=== PATIENT | male | born 1955 | race Two or more races ===

== ENCOUNTER 2025-06-08 15:06 | Inpatient (IN) | payer OTHER, MEDICAID ==
[~2025-06-08] VITALS: Ht 185.4 cm; Wt 86.4 kg
--- NOTE | 2025-06-08 15:24 | ED.PDOC ---
History of Present Illness HPI Comments 70-year-old male, brought in by ambulance, with past medical history of CABG, HTN, and DM presents to the emergency department for chief complaint of s/p near syncopal episodes. EMS reports, patient is coming from home where family called due to patient having x5 near syncopal episodes each lasting approximately 10 seconds. EMS relays, upon arrival to seen patient with found to be hypotensive with a systolic blood pressure in the 90s. In route to the emergency department, patient was given a 200 mL bolus improving his systolic blood pressure to 118 systolic. At this time patient is A&Ox4 and has no other complaints. Time Seen by MD: 15:15 Reviewed Notes: Nurses Notes, Endocrinology Specialist Notes, Medications, Allergies Allergies: Coded Allergies: NO KNOWN ALLERGIES (Unverified , 06/08/25) Information Source: Patient, Emergency Med Personnel Mode of Arrival: EMS Severity: Moderate Timing: Minutes Duration: Since onset Prehospital treatment: None Past Medical History PAST MEDICAL HISTORY: DM, HTN Surgical History: CABG Family History Family History: Unknown Social History Smoker: Non-Smoker Alcohol: Denies ETOH Use Drugs: Denies Drug Use Lives In: Home Constitutional: denies: chills, diaphoresis, fatigue, fever, malaise, sweats, weakness, others EENTM: denies: blurred vision, double vision, ear bleeding, ear discharge, ear drainage, ear pain, ear ringing, eye pain, eye redness, hearing loss, mouth pain, mouth swelling, nasal discharge, nose bleeding, nose congestion, nose pain, photophobia, tearing, throat pain, throat swelling, voice changes, others Respiratory: denies: cough, hemoptysis, orthopnea, SOB at rest, shortness of breath, SOB with excertion, stridor, wheezing, others Cardiovascular: denies: chest pain, dizzy spells, diaphoresis, Dyspnea on exertion, edema, irregular heart beat, left arm pain, lightheadedness, palpitations, PND, syncope, others Gastrointestinal: denies: abdomen distended, abdominal pain, blood streaked bowels, constipated, diarrhea, dysphagia, difficulty swallowing, hematemesis, melena, nausea, poor appetite, poor fluid intake, rectal bleeding, rectal pain, vomiting, others Genitourinary: denies: burning, dysuria, flank pain, frequency, hematuria, incontinence, penile discharge, penile sore, pain, testicle pain, testicle swelling, urgency, others Neurological: reports: others (NEAR SYNCOPE); denies: dizziness, fainting, headache, left sided numbness, left sided weakness, numbness, paresthesia, pre- existing deficit, right sided numbness, right sided weakness, seizure, speech problems, tingling, tremors, weakness Musculoskeletal: denies: back pain, gout, joint pain, joint swelling, muscle pain, muscle stiffness, neck pain, others Integumetry: denies: bruises, change in color, change in hair/nails, dryness, laceration, lesions, lumps, rash, wounds, others Allergic/Immunocompromised: denies: Difficulty Healing, Frequent Infections, Hives, Itching, others Hematologic/Lymphatic: denies: anemia, blood clots, easy bleeding, easy bruising, swollen glands, others Endocrine: denies: excessive hunger, excessive sweating, excessive thirst, excessive urination, flushing, intolerance to cold, intolerance to heat, unexplained weight gain, unexplained weight loss, others Psychiatric: denies: anxiety, bipolar disorder, depression, hopeless, panic disorder, schizophrenia, sleepless, suicidal, others All Other Systems: Reviewed and Negative Physical Exam General Appearance: Moderate Distress HEENT: Normal ENT Inspection, Pharynx Normal, TMs Normal Neck: Full Range of Motion, Non-Tender, Normal, Normal Inspection Respiratory: Chest Non-Tender, Lungs Clear, No Accessory Muscle Use, No Respiratory Distress, Normal Breath Sounds Cardiovascular: No Edema, No JVD, No Murmur, No Gallop, Normal Peripheral Pulses, Regular Rate/Rhythm Breast Exam: Deferred Gastrointestinal: No Organomegaly, Non Tender, No Pulsatile Mass, Normal Bowel Sounds, Soft Genitalia: Deferred Pelvic: Deferred Rectal: Deferred Extremities: No calf tenderness, Normal capillary refill, Normal inspection, Normal range of motion, Non-tender, No pedal edema Musculoskeletal : Apperance: Normal Neurologic: Alert, emergency communications dispatcher II-XII nml as Tested, No Motor Deficits, Normal Affect, Normal Mood, No Sensory Deficits Cerebellar Function: NOT DONE Reflexes: NOT DONE Skin: Dry, Normal Color, Warm Peripheral Pulses: 3+ Radial (R), 3+ Radial (L) Lymphatic: No Adenopathy Was a procedure done? Was a procedure done?: No Differential Dx Considerations may include: HYPOTENSION, ANEMIA, DEHYDRATION, HYPOGLYCEMIA X-Ray, Labs, Meds, VS Vital Signs Date Time Temp Pulse Resp B/P (MAP) Pulse Ox O2 Delivery O2 Flow Rate FiO2 06/08/25 15:25 97.5 63 18 118/57 95 97.5 06/08/25 15:17 60 Lab Test 06/08/25 15:38 Range/Units White Blood Count 12.1 H 4.4-10.8 10^3/uL Red Blood Count 5.76 4.5-5.90 10^6/uL Hemoglobin 17.1 13.5-17.5 g/dL Hematocrit 49.4 41.0-53.0 % Mean Corpuscular Volume 85.8 80.0-100.0 fL Mean Corpuscular Hemoglobin 29.7 28.0-32.0 pg Mean Corpuscular Hemoglobin Concent 34.7 32.0-36.0 g/dL Red Cell Distribution Width 15.7 H 11.8-14.3 % Platelet Count 241 140-450 10^3/uL Mean Platelet Volume 8.3 6.9-10.8 fL Neutrophils (%) (Auto) 47.7 37.0-80.0 % Lymphocytes (%) (Auto) 43.8 10.0-50.0 % Monocytes (%) (Auto) 6.6 0.0-12.0 % Eosinophils (%) (Auto) 1.3 0.0-7.0 % Basophils (%) (Auto) 0.6 0.0-2.0 % Neutrophils # (Auto) 5.8 1.6-8.6 10 ^3/uL Lymphocytes # (Auto) 5.3 0.4-5.4 10 ^3/uL Monocytes # (Auto) 0.8 0-1.3 10 ^3/uL Eosinophils # (Auto) 0.2 0-0.8 10 ^3/uL Basophils # (Auto) 0.1 0-0.2 10 ^3/uL Nucleated Red Blood Cells 0.1 % Sodium Level Pending Potassium Level Pending Chloride Level Pending Carbon Dioxide Level Pending Anion Gap Pending Blood Urea Nitrogen Pending Creatinine Pending Glomerular Filtration Rate Calc Pending BUN/Creatinine Ratio Pending Serum Glucose Pending Calcium Level Pending Troponin I High Sensitivity Pending Patient alert. Possible syncope. Vitals stable. Answering questions. WBC slightly elevated. Possible dehydration. Establish intravenous access. Was given fluids. Neurological exam within normal limits. Explained to the patient that he will be admitted for further studies. Echocardiogram. Continue more drink. Time of 1ST Reevaluation: 15:45 Reevaluation 1ST: Unchanged Patient Education/Counseling: Diagnosis, Treatment Family Education/Counseling: No Family Present SEPSIS Sepsis Screen Physician Orders Troponin-I Hs (06/08/25 15:15) Complete Blood Count (06/08/25 15:15) Urinalysis (06/08/25 15:15) Basic Metabolic Panel (06/08/25 15:15) Sodium Chloride 0.9% (06/08/25 15:15) Electrocardigram (06/08/25 15:32) Vital Signs Date Time Temp Pulse Resp B/P (MAP) Pulse Ox O2 Delivery O2 Flow Rate FiO2 06/08/25 15:25 97.5 63 18 118/57 95 97.5 06/08/25 15:17 60 Laboratory Tests Test 06/08/25 15:38 White Blood Count 12.1 10^3/uL (4.4-10.8) H Departure 1 Departure Time of Disposition: 15:49 Impression: Primary Impression: Hypotension Qualified Codes: I95.9 - Hypotension, unspecified Additional Impression: Syncope Qualified Codes: R55 - Syncope and collapse Disposition: 09 ADMITTED INPATIENT Admit to: Med Surg Condition: Guarded Critical Care Note Critical Care Time?: Yes (90 min-critical care time only) Stability Stability form required: No Heart Score Heart Score: Heart Score Response (Comments) Value History Slightly Suspicious 0 EKG Normal 0 Age >65 2 Risk Factors >3 or Hx ASHD 2 Troponin Normal limit 0 Total 4 I personally scribed for ANI RESTREPO MD ([email or web address]) on 06/08/25 at 15:24. Electronically submitted by Geraldine Grey [email or web address]). ANI RESTREPO MD Jun 08, 2025 15:24
[2025-06-08 15:44] LABS: Hematocrit 49.4 % (41.0-53.0); Hemoglobin 17.1 g/dL (13.5-17.5); Mean Corpuscular Hemoglobin 29.7 pg (28.0-32.0); Mean Corpuscular Volume 85.8 fL (80.0-100.0); Nucleated Red Blood Cells % 0.1 %
[2025-06-08 15:51] LABS: Chloride 105 mmol/L (98-107); Potassium 4.5 mmol/L (3.5-5.1); Sodium 142 mmol/L (136-145)
[2025-06-08 15:52] LABS: Anion Gap 7 (5-15); Calcium 9.2 mg/dL (8.7-10.4); Carbon Dioxide 30 mmol/L (20-31)
[2025-06-08 15:57] LABS: BUN/Creatinine Ratio 11.6 (10.0-20.0); Blood Urea Nitrogen 18 mg/dL (9-23); Glucose 177 mg/dL (74-106)
[2025-06-08] MEDS: SODIUM CHLORIDE 0.9% 1,000 ML IV ONE (16:40)
[2025-06-08 19:27] VITALS: PULSE 69; RESP 20; O2SAT 94
[2025-06-08 19:49] LABS: Urine Protein, UAD Negative (Negative)
[2025-06-09] MEDS ORDERED: DEXTROSE (50%) 50ML SYRG IV PRN ×2 (04:45→18:15)
--- NOTE | 2025-06-09 04:56 | DVHHPRES ---
History of Present Illness Resident Creating Document: CARLIE NEW RESIDENT History of Present Illness 70-year-old male with past medical history of diabetes mellitus on insulin, hypertension, triple-vessel bypass with stent placement, bladder cancer on radiation therapy, prostate cancer on chemotherapy presents to the ER after e xperiencing a 'passing out' episode. The patient was not confused after the episode. He denies any chest pain, shortness of breath, fever, abdominal pain or any other complaints today. Patient's systolic blood pressure was in the 90s on admission in the ER today. Blood pressure and symptoms improved after receiving IV fluid. The patient expresses his frustration, regarding not being able to receive insulin from the pharmacy after prescription by his PCP. Patient wants to make sure he receives insulin while going home. He has been using insulin from his mother and friend, because he was not able to get insulin from the pharmacy. Past medical history: Diabetes mellitus, bladder cancer, prostate cancer, hypertension Past surgical history: Triple-vessel bypass surgery Home medications: Insulin, low-dose aspirin, Lipitor?, patient could not recall the antihypertensive medicine Alcohol: Occasionally, last drink was 1 bottle of beer, before the syncope Smoking: Never Drugs: Active marijuana use Allergies: None PCP:? Code status: Full code Review of Systems Neurological: Other Other Syncope Allergies: Coded Allergies: NO KNOWN ALLERGIES (Unverified , 06/08/25) Medications Current Medications Medications Dose Ordered Sig/Dolores Route Start Time Stop Time Status Last Admin Dose Admin Diagnostic Test (Pha) 1 strip Q6HR 06/09/25 06:00 UNV Insulin Human Regular Q6HR SC 06/09/25 06:00 UNV Dextrose 50 ml UD PRN IV 06/09/25 04:45 UNV Exam Vital Signs Vital Signs Date Time Temp Pulse Resp B/P (MAP) Pulse Ox O2 Delivery O2 Flow Rate FiO2 06/09/25 02:47 98.0 98 15 106/52 (70) 92 98.0 06/08/25 19:27 Room Air* 0 21 Exam Pt is lying on bed General Appearance: Alert, Oriented X3, Cooperative, Mild distress HEENT: Atraumatic, Mucous membranes moist/pink Respiratory: Clear to auscultation, Normal air movement, No added sounds Cardiovascular: Regular rate, Normal S1, Normal S2, No murmurs Abdominal/ : Active bowel sounds, Soft, no distention, no tenderness Extremities: No edema, Normal pulses, No tenderness/swelling Skin: No Significant rash, except past surgical scars Neuro: Normal speech, sensorimotor deficits none Psych/Mental Status: Mental status NL, Mood NL Nurse was there as leasing sales consultant during examination Labs/Xrays Labs Test 06/08/25 19:16 06/08/25 15:38 Range/Units Urine Color Yellow Yellow Urine Clarity Clear Clear Urine pH 6.0 5.0-9.0 Urine Specific [place] 1.029 1.001-1.035 Urine Protein Negative Negative Urine Ketones Negative Negative Urine Blood Negative Negative /uL Urine Nitrite Negative Negative Urine Bilirubin Negative Negative Urine Urobilinogen Normal Negative mg/dL Urine Leukocyte Esterase Negative Negative /uL Urine RBC 1 0 - 3 /hpf Urine Microscopic WBC 1 0-3 /HPF Urine Squamous Epithelial Cells None seen <5 /hpf Urine Bacteria None seen None Seen /hpf Urine Glucose 4+ H Normal mg/dL White Blood Count 12.1 H 4.4-10.8 10^3/uL Red Blood Count 5.76 4.5-5.90 10^6/uL Hemoglobin 17.1 13.5-17.5 g/dL Hematocrit 49.4 41.0-53.0 % Mean Corpuscular Volume 85.8 80.0-100.0 fL Mean Corpuscular Hemoglobin 29.7 28.0-32.0 pg Mean Corpuscular Hemoglobin Concent 34.7 32.0-36.0 g/dL Red Cell Distribution Width 15.7 H 11.8-14.3 % Platelet Count 241 140-450 10^3/uL Mean Platelet Volume 8.3 6.9-10.8 fL Neutrophils (%) (Auto) 47.7 37.0-80.0 % Lymphocytes (%) (Auto) 43.8 10.0-50.0 % Monocytes (%) (Auto) 6.6 0.0-12.0 % Eosinophils (%) (Auto) 1.3 0.0-7.0 % Basophils (%) (Auto) 0.6 0.0-2.0 % Neutrophils # (Auto) 5.8 1.6-8.6 10 ^3/uL Lymphocytes # (Auto) 5.3 0.4-5.4 10 ^3/uL Monocytes # (Auto) 0.8 0-1.3 10 ^3/uL Eosinophils # (Auto) 0.2 0-0.8 10 ^3/uL Basophils # (Auto) 0.1 0-0.2 10 ^3/uL Nucleated Red Blood Cells 0.1 % Sodium Level 142 136-145 mmol/L Potassium Level 4.5 3.5-5.1 mmol/L Chloride Level 105 98-107 mmol/L Carbon Dioxide Level 30 20-31 mmol/L Anion Gap 7 5-15 Blood Urea Nitrogen 18 9-23 mg/dL Creatinine 1.55 H 0.700-1.30 mg/dL Glomerular Filtration Rate Calc 48 >90 mL/min BUN/Creatinine Ratio 11.6 10.0-20.0 Serum Glucose 177 H 74-106 mg/dL Calcium Level 9.2 8.7-10.4 mg/dL Troponin I High Sensitivity 26 </=54 ng/L SEPSIS Sepsis Screen Date sepsis recognized/suspect: Jun 08, 2025 Time Sepsis recognized/suspect: 1951 Recent Procedure: No On Antibiotic Therapy: No Respiratory Rate >20: No Heart Rate >90: No Temp<36 C (96.8 F) or >38.3 C: No SBP <90 or MAP <65 mmHG: No New Acute Mental Status Change: No Is the patient on CPAP, BIPAP,: No Physician Orders Admit (06/09/25 04:24) Allergies (06/09/25 04:24) Complete Blood Count (06/10/25 04:00) Comprehensive Metabolic Panel (06/10/25 04:00) Stat Ekg For Chest Pain (06/09/25 04:24) Notify Md Of Changes From Base (06/09/25 04:24) Paralegal Legal Secretary For 24 Hours (06/09/25 04:24) Emergency Dysrhythmia Protocol (06/09/25 04:24) Rhythm Strips Once Every Shift (06/09/25 04:24) * Cardiology Consult (06/09/25 04:30) Chest Two Views Routine (06/09/25 04:39) Glucose Blood (Accu-Chek Comfort Curve T (06/09/25 06:00) Insulin R (Human) (Insulin R) (06/09/25 06:00) Dextrose 50% Syringe (06/09/25 04:45) Sequential Compression Device (06/09/25 04:45) Vital Signs Date Time Temp Pulse Resp B/P (MAP) Pulse Ox O2 Delivery O2 Flow Rate FiO2 06/09/25 02:47 98.0 98 15 106/52 (70) 92 98.0 06/09/25 00:00 68 17 132/60 (84) 94 06/08/25 21:56 71 18 130/70 (90) 94 Assessment/Plan Assessment/Plan Syncope due to cardiac/neurology cause Status post triple-vessel bypass surgery EKG: Sinus rhythm, no ischemic changes Cardiology consult done Orthostatic vitals ordered, patient received IV fluid Continue low-dose aspirin Hypertension: Continue home medicines Uncontrolled diabetes Insulin sliding scale KENDAL likely due to VMN Creatinine 1.55 IV fluid Consult nephrology if necessary Alcohol and marijuana abuse disorder Counseling regarding cessation was done for more than 21 minutes GI prophylaxis: Not indicated DVT prophylaxis: SCDs Diet: Cardiac Goals of care discussed with the patient for more than 27 minutes: Full code status Case discussed with Dr. Brenner , patient and RN Plan discussed with: Patient, Other (RN) My Orders Orders - CARLIE NEW RESIDENT Procedure Category Date Status Time Admit ADMIT 06/09/25 Transmitted 04:24 Allergies [facility] 06/09/25 In Process 04:24 Complete Blood Count LAB 06/10/25 Verified 04:00 Comprehensive LAB 06/10/25 Verified Metabolic Panel 04:00 Stat Ekg For Chest [facility] 06/09/25 In Process Pain 04:24 Notify Of Changes [facility] 06/09/25 In Process From Base 04:24 Paralegal Legal Secretary For [facility] 06/09/25 In Process 24 Hours 04:24 Emergency Dysrhythmia [facility] 06/09/25 In Process Protocol 04:24 Rhythm Strips Once [facility] 06/09/25 In Process Every Shift 04:24 * Cardiology Consult CONS 06/09/25 Transmitted 04:30 Chest Two Views XY 06/09/25 Logged Routine 04:39 Glucose Blood PHA 06/09/25 Logged (Accu-Chek Comfort 06:00 Insulin R (Human) PHA 06/09/25 Logged (Insulin R) 06:00 Dextrose 50% Syringe PHA 06/09/25 Logged 04:45 Sequential MONTY 06/09/25 In Process Compression Device 04:45 Common Visit Codes: [id number] INP/OBS CARE (HIGH) Secondary Visit Codes: 53978-[id number] CARE PLAN 30 MINUTES CARLIE NEW Jun 09, 2025 04:56
--- NOTE | 2025-06-09 05:26 | DVH ---
CHEST RADIOGRAPH Indication: Rule out pulmonary edema/pneumonia Technique: Single frontal view of the chest was obtained COMPARISON: None FINDINGS: Lines and Tubes: Median sternotomy Lungs: Clear Pleura: No effusion. No pneumothorax. Cardiomediastinal contours: Unremarkable Bones: Unremarkable IMPRESSION: No acute disease.
[2025-06-09] MEDS: ACCU-CHEK COMFORT CURVE STRIP VI SCH (06:32)
[2025-06-09] MEDS: InsuLIN REG 1unit/0.01ml Soln (100units/ml) SC SCH (06:33)
[2025-06-09 07:43] VITALS: PULSE 72; RESP 16; O2SAT 97
[2025-06-09 10:00] VITALS: PULSE 79; RESP 19; O2SAT 96
--- NOTE | 2025-06-09 11:37 | DVHINCON2 ---
Date Seen: Jun 09, 2025 Referring Physician MD Arabella resident Reason for Consultation Syncope History of Present Illness This is a 70-year-old male patient who presents to emergency room status post syncopal episode. The patient reports that yesterday at approximately 2:00 p.m. he was sitting down eating when suddenly he lost consciousness. He denies experiencing any precipitating factors. His partner witnessed the event and reports loss of consciousness for approximately 3 minutes. EMS was called and the patient was brought to the emergency room for further evaluation. Initial twelve lead electrocardiogram reveals normal sinus rhythm without any significant ST segment changes. Initial troponin level of 26ng/L. Significant past medical history includes coronary artery disease status post triple-vessel CABG, hypertension, dyslipidemia, type 2 diabetes mellitus, bladder and prostate cancer previously undergoing chemotherapy and radiation. 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 Past Medical History Past medical history reviewed. No other significant than mentioned above. Past Surgical History Triple-vessel CABG approximately two years ago Family History Family history reviewed. Social History Denies the use of tobacco, alcohol or illicit drugs. Allergies: Coded Allergies: NO KNOWN ALLERGIES (Unverified , 06/08/25) Home Meds Home medications reviewed. Current Medications Current Medications Medications (Trade) Dose Ordered Sig/Dolores Route PRN Reason Start Time Stop Time Status Last Admin Diagnostic Test (Pha) (Accu-Chek Comfort Curve T) 1 strip Q6HR 06/09/25 06:00 06/09/25 06:32 Insulin Human Regular (InsuLIN R) Q6HR SC 06/09/25 06:00 Dextrose 50 ml UD PRN IV Blood Sugar LESS THAN 60 06/09/25 04:45 Review of Systems Constitutional: No symptom reported Ears, Nose, & Throat: No symptom reported Eyes: No symptom reported Neurological: No symptoms reported Pulmonary/Respiratory: No symptoms reported Cardiovascular: No symptom reported Gastrointestinal: No symptom reported Genitourinary: No symptom reported Musculoskeletal: No symptom reported Skin: No symptom reported Psychiatric: No symptom reported Endocrine: No symptom reported Hematologic/Lymphatic: No symptom reported Vital Signs Vital Signs Date Time Temp Pulse Resp B/P (MAP) Pulse Ox O2 Delivery O2 Flow Rate FiO2 06/09/25 07:43 72 16 97 Room Air* 0 21 06/09/25 07:43 97.7 129/51 (77) 97.7 Physical Exam General Appearance: Cooperative. Well-developed. Well-nourished. No acute distress. Pulmonary/Respiratory: Clear, bilateral breaths sounds. Cardiovascular/Chest: Regular rate and rhythm. Peripheral Pulses: 2+ Radial (R). 2+ Radial (L). 2+ Pedal (R). 2+ Pedal (L) Abdominal Exam: Normal bowel sounds. Ankle Exam: Negative ankle edema Lower extremities: Negative lower extremity edema Neuro/Mental Status: A/OX4, coherent. Thoughts/Psych: Normal thought pattern. Appropriate mood and affect. Good judgment and insight. Appearance: No acute distress. Skin Exam: Normal inspection. Normal color. Warm and dry. Labs/Diagnostic Data Labs Test 06/09/25 06:31 06/08/25 19:16 06/08/25 15:38 Range/Units POC Glucose 131 H 70-106 mg/dl Urine Color Yellow Yellow Urine Clarity Clear Clear Urine pH 6.0 5.0-9.0 Urine Specific [place] 1.029 1.001-1.035 Urine Protein Negative Negative Urine Ketones Negative Negative Urine Blood Negative Negative /uL Urine Nitrite Negative Negative Urine Bilirubin Negative Negative Urine Urobilinogen Normal Negative mg/dL Urine Leukocyte Esterase Negative Negative /uL Urine RBC 1 0 - 3 /hpf Urine Microscopic WBC 1 0-3 /HPF Urine Squamous Epithelial Cells None seen <5 /hpf Urine Bacteria None seen None Seen /hpf Urine Glucose 4+ H Normal mg/dL White Blood Count 12.1 H 4.4-10.8 10^3/uL Red Blood Count 5.76 4.5-5.90 10^6/uL Hemoglobin 17.1 13.5-17.5 g/dL Hematocrit 49.4 41.0-53.0 % Mean Corpuscular Volume 85.8 80.0-100.0 fL Mean Corpuscular Hemoglobin 29.7 28.0-32.0 pg Mean Corpuscular Hemoglobin Concent 34.7 32.0-36.0 g/dL Red Cell Distribution Width 15.7 H 11.8-14.3 % Platelet Count 241 140-450 10^3/uL Mean Platelet Volume 8.3 6.9-10.8 fL Neutrophils (%) (Auto) 47.7 37.0-80.0 % Lymphocytes (%) (Auto) 43.8 10.0-50.0 % Monocytes (%) (Auto) 6.6 0.0-12.0 % Eosinophils (%) (Auto) 1.3 0.0-7.0 % Basophils (%) (Auto) 0.6 0.0-2.0 % Neutrophils # (Auto) 5.8 1.6-8.6 10 ^3/uL Lymphocytes # (Auto) 5.3 0.4-5.4 10 ^3/uL Monocytes # (Auto) 0.8 0-1.3 10 ^3/uL Eosinophils # (Auto) 0.2 0-0.8 10 ^3/uL Basophils # (Auto) 0.1 0-0.2 10 ^3/uL Nucleated Red Blood Cells 0.1 % Sodium Level 142 136-145 mmol/L Potassium Level 4.5 3.5-5.1 mmol/L Chloride Level 105 98-107 mmol/L Carbon Dioxide Level 30 20-31 mmol/L Anion Gap 7 5-15 Blood Urea Nitrogen 18 9-23 mg/dL Creatinine 1.55 H 0.700-1.30 mg/dL Glomerular Filtration Rate Calc 48 >90 mL/min BUN/Creatinine Ratio 11.6 10.0-20.0 Serum Glucose 177 H 74-106 mg/dL Calcium Level 9.2 8.7-10.4 mg/dL Troponin I High Sensitivity 26 </=54 ng/L Assessment Syncope, rule out cardiac etiology Rule out structural heart disease Coronary artery disease status post triple-vessel CABG (on aspirin) Hypertension Dyslipidemia Type 2 diabetes mellitus History of bladder and prostate cancer status post chemo and radiation Plan/Recommendation We will continue with the following plan/recommendations (Dr. Agee): * Transthoracic echocardiogram to evaluate cardiac function * Carotid ultrasound * Orthostatic vital signs * Continue single antiplatelet therapy and lipid-lowering agent * Continuous telemetry monitoring Thank you for allowing us to care for this patient. Please call with any questions or concerns. Critical care time spent: 44 minutes This medical document was created using an electronic medical record system with voice recognition software and computerized dictation system. Although this document has been carefully reviewed, there might still be some phonetic and typographical errors. Occasional wrong-word or ``sound-alike substitutions may have occurred due to the inherent limitations of voice recognition software. These areas are purely typographical due to imperfections of the software programs and do not reflect any compromise in the patient's medical care. Please read the chart carefully and recognize, using context, where these substitutions have occurred. Plan discussed with: Patient NYHA Physical activity limitations: NA Date of Service: Jun 09, 2025 Billing Provider: JARON ELIAS Cardiology Common Codes: 23730-LIPBZCM INP/OBS CARE (High) Cardiology Consultation Codes: [id number] CONSULT <45MIN JARON ELIAS Jun 09, 2025 11:37
--- NOTE | 2025-06-09 11:53 | DVH ---
Carotid Duplex Date: 06/09/2025 11:06 AM Clinical History: Syncope Comparison: None Technique: Duplex Doppler evaluation of the extracranial carotid and vertebral arteries including col or Doppler and spectral/pulsed waveform analysis was performed. Findings: Velocities and ratios within normal limits. Mild bilateral atherosclerosis. IMPRESSION: No hemodynamically significant stenosis noted in the right carotid system. No hemodynamically significant stenosis noted in the left carotid system. Reference: Radiology 2003; 229:340-346
[2025-06-09 13:13] LABS: Cholesterol 165.0 mg/dL (< 200); Magnesium 2.0 mg/dL (1.6-2.6)
[2025-06-09 13:17] LABS: HDL Cholesterol 38.0 mg/dL (40-59); Triglycerides 222.0 mg/dL (< 150)
--- NOTE | 2025-06-09 13:39 | ECG ---
[facility] Test Date: 2025-06-08 Test Time: 15:17:48 Pat Name: HOMERO CASTILLO Department: ED Room: [address] [place] [address] Gender: M Dev Technical Mgr: [id number] : [id number] Requested By: ANI RESTREPO Order Number: [id number] Reading MD: Preston Agee Measurements Intervals [place] Rate: 60 P: 37 W[place]: 165 QRS: 28 QRSD: 93 T: 70 QT: 398 QTc: 398 Interpretive Statements Sinus rhythm Electronically Signed On 06-14-2025 17:35:05 PDT by Preston Agee Please click the below link to view image of tracing.
[2025-06-09 14:17] LABS: Chloride 106 mmol/L (98-107); Potassium 3.7 mmol/L (3.5-5.1); Sodium 142 mmol/L (136-145)
[2025-06-09 14:18] LABS: Anion Gap 11 (5-15); Carbon Dioxide 25 mmol/L (20-31)
[2025-06-09 14:19] LABS: Calcium 9.0 mg/dL (8.7-10.4)
[2025-06-09 14:23] LABS: BUN/Creatinine Ratio 14.1 (10.0-20.0); Blood Urea Nitrogen 19 mg/dL (9-23)
[2025-06-09 14:24] LABS: Glucose 216 mg/dL (74-106)
--- NOTE | 2025-06-09 14:44 | DVHPNRES ---
Progress Note Date Seen: Jun 09, 2025 Resident Creating Document: ROULA STODDARD RESIDENT Medical Necessity Reason Pt with a Central, PICC or Fol: No Subjective Review of Systems This is a 70 year old patient with a history of diabetes on insulin and metformin, triple vessel CABG and hypertension who presented to the ER after an episode of passing out early that afternoon while he was sitting and watching TV after eating. He lost consciousness after that and had an episode of vomiting and loss of bladder control. The patient denies any nausea lightheadedness sweating and palpitations before the episode. He denies any chest pain, shortness of breath or fever. Initial 12 lead EKG was done to check for any signs of arrythymia whihc revealed normal sinus rhythm without any significant ST segment changes. initial troponin level of 26 ng/l. Cardiology consult was done and transthoracic echo, telemetry and single dose antiplatelet therapy was recommended. Past medical history: diabetes mellitus on metformin and insulin, hypertension, bladder cancer 20 years back managed with chemotherapy, prostate cancer 16 years back managed with radiation Past surgical history: Triple-vessel CABG done 3 years ago. Patient mentions he has been unable to take the full dose of his medication for diabetes for the last 1 month as it has not been reaching his pharmacy. alcohol : Occasionally, last was 1 bottle of beer before the episode of syncope smoking : never drugs: active marijuana use Allergies: no known allergies Patient seen and examined at bedside. Patient is alert and oriented to time, place person and responding to all questions. Eyes: No Pain, No Vision change, No Conjunctivae inflammation, No Eyelid inflammation, No Other, No Redness ENT: No Ear pain, No Ear discharge, No Nose pain, No Nose discharge, No Nose congestion, No Mouth pain, No Mouth swelling, No Throat pain, No Throat swelling, No Other Cardiovascular: No Chest Pain, No Palpitations, No Orthopnea, No Paroxysmal No Dyspnea, No Edema, No Lt Headedness, No Other Respiratory: No Cough, No Dry, No Shortness of breath, No SOB with exertion, No Wheezing, No Hemoptysis, No Pleuritic Pain, No Sputum, No Other Gastrointestinal: No Nausea, No Vomiting, No Abdominal Pain, No Diarrhea, No Constipation, No Melena, No Hematochezia, No Other Genitourinary: No Dysuria, No Frequency, No Incontinence, No Hematuria, No Retention, No Other General Appearance: Cooperative. Well developed. Well nourished. NAD Head Exam: Normal inspection Neck Exam: Normal inspection. Non-tender. Normal alignment Pulmonary/Respiratory: Chest non-tender. Clear bilateral breath sounds, no crackles, no wheezing. Cardiovascular/Chest: Regular rate and rhythm. No murmurs. No JVD. Peripheral Pulses: 2+ Radial (R). 2+ Radial (L). 2+ Pedal (R). 2+ Pedal (L) Abdominal Exam: Normal bowel sounds. Soft. normal abdomen, no visible veins, Nontender. No hepatospenomegaly. No masses Ankle Exam: Negative ankle edema Lower extremities: Negative lower extremity edema Neuro/Mental Status: A&O x4. Coherent. Thoughts/Psych: Normal thought pattern. Appropriate mood and affect. Good judgement and insight Skin Exam: Normal inspection. Normal color. Warm. Dry Objective vital signs Vital Sign Date Time Temp Pulse Resp B/P (MAP) Pulse Ox O2 Delivery O2 Flow Rate FiO2 06/09/25 14:26 80 14 128/67 (87) 96 06/09/25 10:00 98.3 98.3 06/09/25 10:00 Room Air* 0 21 medications Current Medications Medications Dose Ordered Sig/Dolores Route Start Time Stop Time Status Last Admin Dose Admin Diagnostic Test (Pha) 1 strip Q6HR 06/09/25 06:00 06/09/25 12:22 1 STRIP Insulin Human Regular Q6HR SC 06/09/25 06:00 06/09/25 12:23 6 UNITS Dextrose 50 ml UD PRN IV 06/09/25 04:45 Aspirin 81 mg DAILY PO 06/10/25 10:00 Atorvastatin Calcium 40 mg HS PO 06/09/25 22:00 laboratory and microbiology Laboratory Tests 06/09/25 11:41 06/08/25 15:38 Test 06/09/25 11:41 Range/Units Serum Glucose 216 H 74-106 mg/dL Labs and/or images reviewed: Labs reviewed by me, Image(s) reviewed by me Problem List/Assessment/Plan Problem List/Assessment/Plan #syncope most likely vasovagal dehydration likely due to hyperglycemia and increased water loss for which iv fluids were used for management starting with 1000 ml over 1 hour bolus #patient put on sliding scale insulin to manage blood sugars #repeat creatinine #Coronary artery disease status post triple-vessel CABG (on aspirin) #Hypertension #Dyslipidemia #History of bladder and prostate cancer status post chemo and radiation Plan discussed with Dr Georges Plan discussed with: Patient Date of Service: Jun 09, 2025 Billing Provider: BIBI GEORGES MD Common Visit Codes: NOT BILLABLE ARLYNANKITLALA CASTRO RESIDENT Jun 09, 2025 14:44 BIBI GEORGES MD Jun 13, 2025 21:30
[2025-06-09 17:00] VITALS: BP 131/59; PULSE 68; RESP 12; TEMP 98.3; O2SAT 96
[2025-06-09] MEDS ORDERED: ACCU-CHEK COMFORT CURVE STRIP VI SCH (20:00)
[2025-06-09] MEDS ORDERED: InsuLIN REG 1unit/0.01ml Soln (100units/ml) SC SCH (20:00)
[2025-06-09] MEDS ORDERED: ATORVASTATIN 20 MG TAB PO SCH (22:00)
--- NOTE | 2025-06-10 11:26 | DVHDSRES ---
Discharge Summary Date of Admission Resident Creating Document: ROULA STODDARD RESIDENT Jun 09, 2025 at 04:24 Date of Discharge: Jun 10, 2025 Admitting Diagnosis syncope Labs/Diagnostic Data: Laboratory Results Test 06/09/25 18:42 06/09/25 11:41 06/08/25 19:16 06/08/25 15:38 POC Glucose 115 mg/dl (70-106) Sodium Level 142 mmol/L (136-145) Potassium Level 3.7 mmol/L (3.5-5.1) Chloride Level 106 mmol/L (98-107) Carbon Dioxide Level 25 mmol/L (20-31) Anion Gap 11 (5-15) Blood Urea Nitrogen 19 mg/dL (9-23) Creatinine 1.35 mg/dL (0.700-1.30) Glomerular Filtration Rate Calc 56 mL/min (>90) BUN/Creatinine Ratio 14.1 (10.0-20.0) Serum Glucose 216 mg/dL (74-106) Hemoglobin A1c 7.6 % A1C (<5.7) Calcium Level 9.0 mg/dL (8.7-10.4) Magnesium Level 2.0 mg/dL (1.6-2.6) Triglycerides Level 222 mg/dL (< 150) Cholesterol Level 165 mg/dL (< 200) LDL Cholesterol 106 mg/dL (< 100) HDL Cholesterol 38 mg/dL (40-59) Thyroid Stimulating Hormone (TSH) 1.52 uIU/mL (0.55-4.78) Urine Color Yellow (Yellow) Urine Clarity Clear (Clear) Urine pH 6.0 (5.0-9.0) Urine Specific [place] 1.029 (1.001-1.035) Urine Protein Negative (Negative) Urine Ketones Negative (Negative) Urine Blood Negative /uL (Negative) Urine Nitrite Negative (Negative) Urine Bilirubin Negative (Negative) Urine Urobilinogen Normal mg/dL (Negative) Urine Leukocyte Esterase Negative /uL (Negative) Urine RBC 1 /hpf (0 - 3) Urine Microscopic WBC 1 /HPF (0-3) Urine Squamous Epithelial Cells None seen /hpf (<5) Urine Bacteria None seen /hpf (None Seen) Urine Glucose 4+ mg/dL (Normal) White Blood Count 12.1 10^3/uL (4.4-10.8) Red Blood Count 5.76 10^6/uL (4.5-5.90) Hemoglobin 17.1 g/dL (13.5-17.5) Hematocrit 49.4 % (41.0-53.0) Mean Corpuscular Volume 85.8 fL (80.0-100.0) Mean Corpuscular Hemoglobin 29.7 pg (28.0-32.0) Mean Corpuscular Hemoglobin Concent 34.7 g/dL (32.0-36.0) Red Cell Distribution Width 15.7 % (11.8-14.3) Platelet Count 241 10^3/uL (140-450) Mean Platelet Volume 8.3 fL (6.9-10.8) Neutrophils (%) (Auto) 47.7 % (37.0-80.0) Lymphocytes (%) (Auto) 43.8 % (10.0-50.0) Monocytes (%) (Auto) 6.6 % (0.0-12.0) Eosinophils (%) (Auto) 1.3 % (0.0-7.0) Basophils (%) (Auto) 0.6 % (0.0-2.0) Neutrophils # (Auto) 5.8 10 ^3/uL (1.6-8.6) Lymphocytes # (Auto) 5.3 10 ^3/uL (0.4-5.4) Monocytes # (Auto) 0.8 10 ^3/uL (0-1.3) Eosinophils # (Auto) 0.2 10 ^3/uL (0-0.8) Basophils # (Auto) 0.1 10 ^3/uL (0-0.2) Nucleated Red Blood Cells 0.1 % Troponin I High Sensitivity 26 ng/L (</=54) Other Laboratory Tests 06/09/25 11:41 06/08/25 15:38 Brief Hx & Hospital Course: This was a 70 year old patient with a history of diabetes on insulin and metformin, triple vessel CABG and hypertension who presented to the ER after an episode of passing out early that afternoon while he was sitting and watching TV after eating. He lost consciousness after that and had an episode of vomiting and loss of bladder control. The patient denied any nausea lightheadedness, sweating and palpitations before the episode. He denids any chest pain, shortness of breath or fever. Initial 12 lead EKG was done to check for any signs of arrythymia which revealed normal sinus rhythm without any significant ST segment changes. Initial troponin level of 26 ng/l. Cardiology consult was done and transthoracic echo and single dose antiplatelet therapy was recommended and patient was put on telemetry.Carotid duplex study was done which was unremarkable. Patient also had history of bladder cancer treated with chemotherapy 20 years back and prostate cancer treated with radiation 15 years back. Patient uses marijuana actively. Patient was stable and asymptomatic. He left AMA. Condition at Discharge: Stable Final Diagnosis/Problems List #syncope most likely vasovagal dehydration likely due to hyperglycemia and increased water loss for which iv fluids were used for management starting with 1000 ml over 1 hour bolus #patient put on sliding scale insulin to manage blood sugar levels #Coronary artery disease status post triple-vessel CABG (on aspirin) #Hypertension #Dyslipidemia #History of bladder and prostate cancer status post chemo and radiation Discharge Disposition: AMA Discharge Statement: "Patient was advised to return to the ER or call 911 if any headaches, dizziness, shortness of breath, chest pain, abdominal pain, bleeding, fevers, or worsening of medical condition. Patient was counseled about treatment plan, medications, possible side effects, patientverbalized understanding. All questions were answered to the best of my ability. This discharge took greater then 30 minutes in planning, reviewing documentation, counseling the patient, and discussing with other team members." ASSESSMENT ASSESSMENT Assessment Date of Service: Jun 09, 2025 Billing Provider: BIBI HARRISON MD Common Visit Codes: 10104-JOR/OBS DISCH DAY >30min ROULA STODDARD RESIDENT Jun 10, 2025 11:26 BIBI HARRISON MD Jun 13, 2025 21:30
[2025-06-10] MEDS ORDERED: INSULIN LANTUS (GLARGINE) 1 /0.01ml (100units/ml) SC SCH (18:00)
== END 2025-06-09 20:09 | disposition left against medical advice (07) | DRG 73 ==
LOC: ER 15:06 → EDBD 15:06 → EDSEX 15:06 → OVERFLOW 06-09 04:24
PROVIDERS: ADMIT Internal Medicine Geriatric Medicine; ATTEND Internal Medicine Geriatric Medicine
DX: G90.89 Other disorders of autonomic nervous system (principal); N17.0 Acute kidney failure with tubular necrosis; I10 Essential (primary) hypertension; F10.10 Alcohol abuse, uncomplicated; Z53.29 Procedure and treatment not carried out because of patient's decision for other reasons; I25.10 Atherosclerotic heart disease of native coronary artery without angina pectoris; E86.0 Dehydration; E78.5 Hyperlipidemia, unspecified; E11.65 Type 2 diabetes mellitus with hyperglycemia; F12.10 Cannabis abuse, uncomplicated; I95.9 Hypotension, unspecified; Z95.1 Presence of aortocoronary bypass graft; Z92.21 Personal history of antineoplastic chemotherapy; Z85.46 Personal history of malignant neoplasm of prostate; Z92.3 Personal history of irradiation; Z79.899 Other long term (current) drug therapy; Y90.9 Presence of alcohol in blood, level not specified
CPT/HCPCS: 36415; 71045; 80048; 80061; 81001; 82962; 83036; 83735; 84443; 84484; 85025; 93005; 93886; 96360; 99291; 99292; G0378; J1815